=== PATIENT | female | born 1960 | race Hispanic/Latino ===

== ENCOUNTER → 2018-09-22 | Day surgery (SDC) | payer OTHER ==
[~2018-09-22] MED LIST: AMARYL4 MG; ASPIRIN81 MG; ERGOCALCIF8000 UNIT/; LEVAQUIN500 MG PO; LISINOPRIL10 MG PO; METFORMIN HCL500 MG PO; SIMVASTATIN20 MG PO
== END | disposition home or self-care (01) ==
LOC: OR 08:21
PROVIDERS: ATTEND Internal Medicine Gastroenterology
DX: Z12.11 Encounter for screening for malignant neoplasm of colon (principal); Z53.8 Procedure and treatment not carried out for other reasons; I48.91 Unspecified atrial fibrillation
CPT/HCPCS: 36415; 82948; 93005